=== PATIENT | female | born 1975 | race Caucasian/White ===

== ENCOUNTER 2016-08-15 17:49 | Emergency (ER) | payer BC ==
[2016-08-15] MEDS ORDERED: ONDANSETRON 4 MG/2 ML VIAL IVP STA (18:07)
[2016-08-15] MEDS ORDERED: DICYCLOMINE 10 MG/ML 2 ML AMP IM STA (18:07)
[2016-08-15] MEDS ORDERED: RX INFO: IV CONTRAST WAS GIVEN 1 EACH MISC MISCELLANE PRN (18:07)
[2016-08-15] MEDS ORDERED: SODIUM CHLORIDE 0.9% 1,000 ML IV STA (18:07)
[2016-08-15] MEDS ORDERED: FAMOTIDINE 20 MG/2 ML VIAL IV STA (18:08)
--- NOTE | 2016-08-15 18:10 | ED ---
General Adult HPI - General Chief complaint: Abdominal Pain Stated complaint: abdominal pain Time Seen by Provider: 08/15/16 18:02 Source: patient, RN notes reviewed Mode of arrival: wheelchair Limitations: no limitations - History of Present Illness Initial comments: Patient is a pleasant 41-year-old female presenting to the emergency department complaining of abdominal discomfort. Onset was around 11. Symptoms worsened around 4:00. Symptoms are somewhat steady at this point. Patient has discomfort more in her lower than upper abdomen. Discomfort is also in the back. Patient questions if she had a fever earlier. Patient has nausea without vomiting. No constipation or diarrhea. No dysuria or hematuria. No history of similar symptoms previously. Patient states she did have paresthesias of her arms and legs earlier. - Related Data Home Medications Medication Instructions Recorded Confirmed LORazepam [Lorazepam] 0.5 mg PO HS PRN 11/03/14 08/15/16 Calcium Lactate 84 mg PO 08/15/16 08/15/16 Cider Vinegar [Apple Cider Vinegar] 300 mg PO 08/15/16 08/15/16 Desmopressin Intranasal [Ddavp 1 spray NASAL 08/15/16 08/15/16 Nasal [place]] Desmopressin Intranasal [Ddavp 2 spray NASAL [facility] 08/15/16 08/15/16 Nasal [place]] Hydrocortisone [Cortef] 5 mg PO DAILY@1500 08/15/16 08/15/16 Hydrocortisone [Cortef] 10 mg PO [facility] 08/15/16 08/15/16 Levothyroxine Sodium [Tirosint] 25 mcg PO DAILY 08/15/16 08/15/16 Milk Of Magnesia Tab 1.5 tab PO 08/15/16 08/15/16 Montelukast [Singulair] 10 mg PO 08/15/16 08/15/16 Ranitidine HCl 300 mg PO 08/15/16 08/15/16 Venlafaxine HCl ER [Effexor Xr] 225 mg PO DAILY 08/15/16 08/15/16 Previous Rx's Medication Instructions Recorded Dicyclomine HCl [Bentyl] 20 mg PO QID PRN #15 tab 08/15/16 Ondansetron Odt [Zofran Odt] 4 mg PO Q8HR PRN #10 tab 08/15/16 Allergies Allergy/AdvReac Type Severity Reaction Status Date / Time adhesive AdvReac TEARS AND Verified 08/15/16 18:19 IRRITATES SKIN gluten AdvReac JOINT PAIN Verified 08/15/16 18:19 AND SEVERE CONSTIPATION lactose AdvReac Nausea & Verified 08/15/16 18:19 Vomiting codeine AdvReac Nausea & Uncoded 12/22/15 08:54 Vomiting Review of Systems ROS Statement: Those systems with pertinent positive or pertinent negative responses have been documented in the HPI. ROS Other: All systems not noted in ROS Statement are negative. Constitutional: Reports: chills Eyes: Denies: eye pain ENT: Denies: ear pain Respiratory: Denies: cough Cardiovascular: Denies: chest pain Endocrine: Denies: fatigue Gastrointestinal: Reports: abdominal pain, nausea. Denies: vomiting, diarrhea, constipation Genitourinary: Denies: urgency, dysuria Musculoskeletal: Denies: back pain Skin: Denies: rash Neurological: Denies: weakness Past Medical History Past Medical History: Thyroid Disorder Additional Past Medical History / Comment(s): hx pituitary tumor,anemia, hypoglycemia, steroid dependant diabetes insipidous History of Any Multi-Drug Resistant Organisms: None Reported Past Surgical History: Breast Surgery, Hysterectomy Additional Past Surgical History / Comment(s): exploratory laparoscopy, pituitary removed 01-21-12-transphenoid approach, bryan breast bx ;colonoscopy Past Anesthesia/Blood Transfusion Reactions: Motion Sickness, Postoperative Nausea & Vomiting (PONV) Past Psychological History: Anxiety, Depression Smoking Status: Never smoker Past Alcohol Use History: None Reported Additional Past Alcohol Use History / Comment(s): smoked briefly in college Past Drug Use History: None Reported - Past Family History Mother Family Medical History: Hyperlipidemia, Hypertension Father Family Medical History: Cancer, Hyperlipidemia, Hypertension Additional Family Medical History / Comment(s): arthritis General Exam Limitations: no limitations General appearance: alert, in no apparent distress Head exam: Present: atraumatic Eye exam: Present: normal appearance, PERRL ENT exam: Present: normal oropharynx Neck exam: Present: normal inspection Respiratory exam: Present: normal lung sounds bilaterally Cardiovascular Exam: Present: regular rate, normal rhythm GI/Abdominal exam: Present: soft, tenderness (Moderate tenderness lower abdomen , mild tenderness of her abdomen), normal bowel sounds. Absent: distended, guarding, rebound, rigid, pulsatile mass Extremities exam: Present: normal inspection Back exam: Present: normal inspection. Absent: tenderness Neurological exam: Present: alert Expanded Sensory exam: Upper Extremity Light Touch: Normal, Lower Extremity Light Touch: Normal Psychiatric exam: Present: normal affect, normal mood Skin exam: Absent: rash Course Vital Signs 08/15/16 17:52 Temperature 97.8 F Pulse Rate 99 Respiratory 16 Rate Blood Pressure 122/69 O2 Sat by Pulse 100 Oximetry Medical Decision Making - Medical Decision Making Patient reexamined and improved. Patient still has some discomfort of her lower back and is receptive to further pain medication. Patient updated on results and need for follow-up. Patient advised to return if symptoms worsen. - Lab Data Result diagrams: 08/15/16 18:30 08/15/16 18:30 Lab Results 08/15/16 08/15/16 08/15/16 Range/Units 18:30 18:30 18:30 WBC 9.4 (3.8-10.6) k/uL RBC 4.49 (3.80-5.40) m/uL Hgb 13.4 (11.4-16.0) gm/dL Hct 40.4 (34.0-46.0) % MCV 90.1 (80.0-100.0) fL MCH 29.7 (25.0-35.0) pg MCHC 33.0 (31.0-37.0) g/dL RDW 11.9 (11.5-15.5) % Plt Count 312 (150-450) k/uL Neutrophils % 85 % Lymphocytes % 9 % Monocytes % 4 % Eosinophils % 0 % Basophils % 0 % Neutrophils # 8.0 H (1.3-7.7) k/uL Lymphocytes # 0.9 L (1.0-4.8) k/uL Monocytes # 0.4 (0-1.0) k/uL Eosinophils # 0.0 (0-0.7) k/uL Basophils # 0.0 (0-0.2) k/uL PT 9.8 (9.0-12.0) sec INR 1.0 (<1.1) APTT 23.2 (22.0-30.0) sec Sodium 138 (137-145) mmol/L Potassium 4.2 (3.5-5.1) mmol/L Chloride 101 (98-107) mmol/L Carbon Dioxide 24 (22-30) mmol/L Anion Gap 13 mmol/L BUN 13 (7-17) mg/dL Creatinine 0.60 (0.52-1.04) mg/dL Est GFR (MDRD) Af Amer >60 (>60 ml/min/1.73 sqM) Est GFR (MDRD) Non-Af >60 (>60 ml/min/1.73 sqM) Glucose 87 (74-99) mg/dL Calcium 9.5 (8.4-10.2) mg/dL Total Bilirubin 0.8 (0.2-1.3) mg/dL AST 16 (14-36) U/L ALT 26 (9-52) U/L Alkaline Phosphatase 100 (38-126) U/L Total Protein 7.3 (6.3-8.2) g/dL Albumin 4.1 (3.5-5.0) g/dL Amylase <30 L (30-110) U/L Lipase 71 (23-300) U/L Urine Color Urine Appearance (Clear) Urine pH (5.0-8.0) Ur Specific [place] (1.001-1.035) Urine Protein (Negative) Urine Glucose (UA) (Negative) Urine Ketones (Negative) Urine Blood (Negative) Urine Nitrate (Negative) Urine Bilirubin (Negative) Urine Urobilinogen (<2.0) mg/dL Ur Leukocyte Esterase (Negative) Urine RBC (0-5) /hpf Urine WBC (0-5) /hpf Ur Squamous Epith Cells (0-4) /hpf Amorphous Sediment (None) /hpf Urine Mucus (None) /hpf 08/15/16 Range/Units 18:30 WBC (3.8-10.6) k/uL RBC (3.80-5.40) m/uL Hgb (11.4-16.0) gm/dL Hct (34.0-46.0) % MCV (80.0-100.0) fL MCH (25.0-35.0) pg MCHC (31.0-37.0) g/dL RDW (11.5-15.5) % Plt Count (150-450) k/uL Neutrophils % % Lymphocytes % % Monocytes % % Eosinophils % % Basophils % % Neutrophils # (1.3-7.7) k/uL Lymphocytes # (1.0-4.8) k/uL Monocytes # (0-1.0) k/uL Eosinophils # (0-0.7) k/uL Basophils # (0-0.2) k/uL PT (9.0-12.0) sec INR (<1.1) APTT (22.0-30.0) sec Sodium (137-145) mmol/L Potassium (3.5-5.1) mmol/L Chloride (98-107) mmol/L Carbon Dioxide (22-30) mmol/L Anion Gap mmol/L BUN (7-17) mg/dL Creatinine (0.52-1.04) mg/dL Est GFR (MDRD) Af Amer (>60 ml/min/1.73 sqM) Est GFR (MDRD) Non-Af (>60 ml/min/1.73 sqM) Glucose (74-99) mg/dL Calcium (8.4-10.2) mg/dL Total Bilirubin (0.2-1.3) mg/dL AST (14-36) U/L ALT (9-52) U/L Alkaline Phosphatase (38-126) U/L Total Protein (6.3-8.2) g/dL Albumin (3.5-5.0) g/dL Amylase (30-110) U/L Lipase (23-300) U/L Urine Color Yellow Urine Appearance Cloudy H (Clear) Urine pH 8.5 H (5.0-8.0) Ur Specific [place] 1.017 (1.001-1.035) Urine Protein 1+ H (Negative) Urine Glucose (UA) Negative (Negative) Urine Ketones Negative (Negative) Urine Blood Negative (Negative) Urine Nitrate Negative (Negative) Urine Bilirubin Negative (Negative) Urine Urobilinogen <2.0 (<2.0) mg/dL Ur Leukocyte Esterase Negative (Negative) Urine RBC 2 (0-5) /hpf Urine WBC 1 (0-5) /hpf Ur Squamous Epith Cells 5 H (0-4) /hpf Amorphous Sediment Occasional H (None) /hpf Urine Mucus Rare H (None) /hpf - Radiology Data Radiology results: report reviewed (Computed tomography scan of the abdomen and pelvis shows no acute process.) Disposition Clinical Impression: Abdominal pain Disposition: HOME SELF-CARE Condition: Stable Instructions: Abdominal Pain (ED) Additional Instructions: Please follow-up with your doctor in the next day or 2 for recheck. Return for fevers, increased pain, worsening symptoms or any other concerns. Prescriptions: Dicyclomine HCl [Bentyl] 20 mg PO QID PRN #15 tab PRN Reason: Pain Ondansetron Odt [Zofran Odt] 4 mg PO Q8HR PRN #10 tab PRN Reason: Nausea Referrals: Bk Cornell MD [Primary Care Provider] - 1-2 days
[2016-08-15 18:45] LABS: Basophils % (A) 0 %; CH 30.2; CHCM 33.7; Eosinophils % (A) 0 %; HCT 40.4 % (34.0-46.0); HGB 13.4 gm/dL (11.4-16.0); Luc # (Auto) 0.07; Luc % (Auto) 1; Lymphocytes # (A) 0.9 k/uL (1.0-4.8); Lymphocytes % (A) 9 %; MCH 29.7 pg (25.0-35.0); MCV 90.1 fL (80.0-100.0); Mean Platelet Volume 8.5; Monocytes # (A) 0.4 k/uL (0-1.0); Monocytes % (A) 4 %; Neutrophils % (A) 85 %; RBC 4.49 m/uL (3.80-5.40); RDW 11.9 % (11.5-15.5); WBC 9.4 k/uL (3.8-10.6); WBC (Perox) 9.94
[2016-08-15 18:48] LABS: Amorphous Sediment,Urine Occasional /hpf; Appearance,Urine Cloudy (Clear); Bilirubin,Urine Negative (Negative); Glucose,Urine (UA) Negative (Negative); Ketones,Urine Negative (Negative); Leukocyte Esterase,Urine Negative (Negative); Mucus,Urine Rare /hpf; Nitrite,Urine Negative (Negative); PH, Urine 8.5 (5.0-8.0); Particle Count 5907; Protein,Urine 1+ (Negative); RBC,Urine 2 /hpf (0-5); Specific Gravity,Urine 1.017 (1.001-1.035); Squamous Epithelial Cell,Urine 5 /hpf (0-4); UA Billing (MACRO vs. MICRO) MICRO; Urobilinogen,Urine <2.0 mg/dL (<2.0); WBC,Urine 1 /hpf (0-5)
[2016-08-15 18:53] LABS: Partial Thromboplastin Time 23.2 sec (22.0-30.0); Prothrombin Time 9.8 sec (9.0-12.0)
[2016-08-15 18:56] LABS: ALT 26 U/L (9-52); AST 16 U/L (14-36); Alkaline Phosphatase 100 U/L (38-126); Amylase <30 U/L (30-110); Anion Gap 13 mmol/L; Blood Urea Nitrogen 13 mg/dL (7-17); Calcium 9.5 mg/dL (8.4-10.2); Carbon Dioxide 24 mmol/L (22-30); Chloride 101 mmol/L (98-107); Glucose 87 mg/dL (74-99); Non-African American GFR(MDRD) >60 (>60 ml/min/1.73 sqM); Potassium 4.2 mmol/L (3.5-5.1); Sodium 138 mmol/L (137-145); Total Bilirubin 0.8 mg/dL (0.2-1.3); Total Protein 7.3 g/dL (6.3-8.2)
--- NOTE | 2016-08-15 19:26 | CT ---
EXAMINATION TYPE: CT abdomen pelvis w con DATE OF EXAM: 08/15/2016 6:58 PM COMPARISON: NONE HISTORY: Patient complains of bilateral pelvic pain. CT DLP: 417.8 mGycm Automated exposure control for dose reduction was used. TECHNIQUE: Helical acquisition of images was performed from the lung bases through the pelvis. CONTRAST: Performed without Oral Contrast and with IV Contrast, patient injected with 100 mL of Omnipaque 300. FINDINGS: LUNG BASES: No significant abnormality is appreciated. LIVER/GB: No significant abnormality is appreciated. PANCREAS: No significant abnormality is seen. SPLEEN: No significant abnormality is seen. ADRENALS: No significant abnormality is seen. KIDNEYS: No significant abnormality is seen. REPRODUCTIVE ORGANS: No significant abnormality is seen URINARY BLADDER: No significant abnormality is seen. PELVIC ADENOPATHY: None visualized. OSSEOUS STRUCTURES: No significant abnormality is seen. BOWEL: No significant abnormality is seen. IMPRESSION: NO ACUTE PROCESS, CT ABDOMEN AND PELVIS WITH CONTRAST.
[2016-08-15] MEDS ORDERED: MORPHINE SULFATE 4 MG/ML SYRINGE IV STA (19:43)
[2016-08-15 19:59] VITALS: BP 104/65; PULSE 84; RESP 18; TEMP 98.7
== END 2016-08-15 20:12 | disposition home or self-care (01) ==
LOC: EC 17:49
DX: R10.9 Unspecified abdominal pain (principal); E23.2 Diabetes insipidus; R11.0 Nausea; E07.9 Disorder of thyroid, unspecified; Z79.52 Long term (current) use of systemic steroids; Z88.5 Allergy status to narcotic agent; F41.9 Anxiety disorder, unspecified; F32.9 Major depressive disorder, single episode, unspecified; Z79.899 Other long term (current) drug therapy
CPT/HCPCS: 96372; 96374; 96375; 96361; 99284; 36415; 80053; 82150; 83690; 85025; 85610; 85730; 81001; 74177; J2270; J0500; J2405

== ENCOUNTER → 2016-08-22 | Outpatient (CLI) | payer BC ==
[2016-08-22 17:15] LABS: ALT 33 U/L (9-52); AST 15 U/L (14-36); Alkaline Phosphatase 104 U/L (38-126); Anion Gap 14 mmol/L; Blood Urea Nitrogen 8 mg/dL (7-17); Calcium 10.1 mg/dL (8.4-10.2); Carbon Dioxide 27 mmol/L (22-30); Chloride 106 mmol/L (98-107); Glucose 81 mg/dL (74-99); Non-African American GFR(MDRD) >60 (>60 ml/min/1.73 sqM); Potassium 4.1 mmol/L (3.5-5.1); Sodium 147 mmol/L (137-145); Total Bilirubin 0.3 mg/dL (0.2-1.3); Total Protein 7.8 g/dL (6.3-8.2)
[2016-08-22 17:33] LABS: Follicle Stimulating Hormone 3.9 mIU/mL
[2016-08-22 17:48] LABS: Estradiol 96 pg/mL
== END | disposition home or self-care (01) ==
LOC: LABWHC1 16:08
PROVIDERS: ATTEND Internal Medicine Endocrinology, Diabetes & Metabolism
DX: D44.3 Neoplasm of uncertain behavior of pituitary gland (principal)
CPT/HCPCS: 36415; 80053; 82670; 83001; 83002; 84403; 84439; 84443

== ENCOUNTER → 2016-08-24 | Outpatient (CLI) | payer BC ==
--- NOTE | 2016-08-24 09:03 | NM ---
Nuclear medicine hepatobiliary scan. HISTORY: Pain. The patient received 8 ounces of oral ensure plus and 5 mCi of Technetium 99m Choletec. There is normal hepatic extraction. The gallbladder is seen by 15 minutes. Ejection fraction is 78% . IMPRESSION: 1. No evidence of cholecystitis. 2. Ejection fraction 78%. Correlate clinically.
== END | disposition home or self-care (01) ==
LOC: RADNMMAIN 06:54
PROVIDERS: ATTEND Nurse Practitioner Family
DX: R10.84 Generalized abdominal pain (principal)
CPT/HCPCS: 78226; A9537

== ENCOUNTER → 2016-11-01 | Outpatient (CLI) | payer BC ==
[2016-11-01 16:48] LABS: ALT 26 U/L (9-52); AST 20 U/L (14-36); Alkaline Phosphatase 104 U/L (38-126); Anion Gap 13 mmol/L; Blood Urea Nitrogen 12 mg/dL (7-17); Carbon Dioxide 28 mmol/L (22-30); Chloride 100 mmol/L (98-107); Glucose 84 mg/dL (74-99); Non-African American GFR(MDRD) >60 (>60 ml/min/1.73 sqM); Potassium 4.5 mmol/L (3.5-5.1); Sodium 141 mmol/L (137-145); Total Bilirubin 0.5 mg/dL (0.2-1.3); Total Protein 7.9 g/dL (6.3-8.2)
== END ==
LOC: LABWHC1 16:07
PROVIDERS: ATTEND Internal Medicine Endocrinology, Diabetes & Metabolism
DX: D49.7 Neoplasm of unspecified behavior of endocrine glands and other parts of nervous system (principal)
CPT/HCPCS: 36415; 80053

== ENCOUNTER → 2016-11-16 | Outpatient (CLI) | payer BC ==
--- NOTE | 2016-11-17 11:36 | MM ---
Reason for exam: screening (asymptomatic). Last mammogram was performed 2 years and 1 month ago. History: Family history of breast cancer in maternal aunt at age 40 and breast cancer in paternal aunt at age 33. Benign US breast aspiration single RT of the right breast, October 31, 2014. Benign US biopsy breast VAD LT of the left breast, October 31, 2014. Physical Findings: A clinical breast exam by your physician is recommended on an annual basis and results should be correlated with mammographic findings. MG 3D Screening Mammo W/Cad Bilateral CC and MLO view(s) were taken. Prior study comparison: October 31, 2014, left breast MG diagnostic mammo LT wo CAD. October 30, 2014, bilateral MG work up mamm w CAD BILAT. The breast tissue is heterogeneously dense. This may lower the sensitivity of mammography. Previous ultrasound biopsy within the left breast. No significant changes when compared with prior studies. ASSESSMENT: Benign, BI-RAD 2 RECOMMENDATION: Routine screening mammogram of both breasts in 1 year.
== END | disposition home or self-care (01) ==
LOC: RADMAMWWP 10:33
PROVIDERS: ATTEND Pediatrics
DX: Z12.31 Encounter for screening mammogram for malignant neoplasm of breast (principal)
CPT/HCPCS: 77063; G0202

== ENCOUNTER → 2017-01-11 | Outpatient (CLI) | payer BC ==
[2017-01-11 16:09] LABS: ALT 23 U/L (9-52); AST 14 U/L (14-36); Alkaline Phosphatase 95 U/L (38-126); Anion Gap 9 mmol/L; Blood Urea Nitrogen 8 mg/dL (7-17); Calcium 9.6 mg/dL (8.4-10.2); Carbon Dioxide 27 mmol/L (22-30); Chloride 105 mmol/L (98-107); Glucose 85 mg/dL (74-99); Non-African American GFR(MDRD) >60 (>60 ml/min/1.73 sqM); Potassium 3.9 mmol/L (3.5-5.1); Sodium 141 mmol/L (137-145); Total Bilirubin 0.2 mg/dL (0.2-1.3); Total Protein 7.4 g/dL (6.3-8.2)
== END ==
LOC: LABWHC1 15:27
PROVIDERS: ATTEND Internal Medicine Endocrinology, Diabetes & Metabolism
DX: E27.40 Unspecified adrenocortical insufficiency (principal); E03.8 Other specified hypothyroidism
CPT/HCPCS: 36415; 80053; 82024; 84439; 84443

== ENCOUNTER → 2017-05-04 | Outpatient (CLI) | payer BC | END | disposition home or self-care (01) | LOC: LABWHC1 14:10 | PROVIDERS: ATTEND Internal Medicine Endocrinology, Diabetes & Metabolism | DX: E27.40 Unspecified adrenocortical insufficiency (principal); E23.2 Diabetes insipidus | CPT/HCPCS: 36415; 84146; 84439; 84443 ==

== ENCOUNTER → 2017-05-29 | Outpatient (CLI) | payer BC ==
--- NOTE | 2017-05-29 09:54 | FL ---
EXAMINATION TYPE: FL small bowel follow through DATE OF EXAM: 05/29/2017 CLINICAL HISTORY: Inconsistent bowel habits. TECHNIQUE: A single contrast small bowel follow through is performed utilizing 16 ounces of thin bar ium. 16 seconds of fluoroscopy time was utilized with 8 images saved. COMPARISON: None FINDINGS: Stained Glass Painter image of the abdomen shows no dilated bowel. Incidental note of a 2 mm right lower p ole renal calculus is seen. The small bowel study shows normal transit to the colon in less than 40 minutes. There is a normal m ucosal fold pattern throughout the small bowel. There is no evidence of any stricture or filling def ect noted. The terminal ileum is spotted and appears unremarkable. IMPRESSION: 1. Unremarkable small bowel follow through with a normal small bowel mucosal fold pattern and no evid ence of stricture. 2. Incidentally noted 2 mm right renal calculus.
== END ==
LOC: RADFLMAIN 07:37
PROVIDERS: ATTEND Physician Assistant
DX: R19.4 Change in bowel habit (principal)
CPT/HCPCS: 74250

== ENCOUNTER → 2017-10-28 | Outpatient (CLI) | payer BC ==
[2017-10-28 10:15] LABS: HCT 42.1 % (34.0-46.0); MCH 30.4 pg (25.0-35.0); MCHC 33.3 g/dL (31.0-37.0); Platelet Count 363 k/uL (150-450); RBC 4.63 m/uL (3.80-5.40); RDW 12.4 % (11.5-15.5); WBC 10.2 k/uL (3.8-10.6)
[2017-10-28 10:31] LABS: ALT 21 U/L (9-52); AST 12 U/L (14-36); Albumin 4.1 g/dL (3.5-5.0); Alkaline Phosphatase 119 U/L (38-126); Anion Gap 10 mmol/L; Blood Urea Nitrogen 12 mg/dL (7-17); Calcium 10.1 mg/dL (8.4-10.2); Carbon Dioxide 27 mmol/L (22-30); Chloride 107 mmol/L (98-107); Cholesterol 210 mg/dL (<200); Glucose 97 mg/dL (74-99); HDL Cholesterol 49 mg/dL (40-60); LDL Cholesterol,Calculated 125 mg/dL (0-99); Potassium 4.6 mmol/L (3.5-5.1); Sodium 144 mmol/L (137-145); Total Bilirubin 0.8 mg/dL (0.2-1.3); Total Protein 7.6 g/dL (6.3-8.2); Triglycerides 181 mg/dL (<150)
== END | disposition home or self-care (01) ==
LOC: LABWHC1 09:36
PROVIDERS: ATTEND Pediatrics
DX: Z00.00 Encounter for general adult medical examination without abnormal findings (principal); E27.1 Primary adrenocortical insufficiency; E55.9 Vitamin D deficiency, unspecified
CPT/HCPCS: 36415; 80053; 80061; 82306; 85027

== ENCOUNTER → 2018-01-25 | Outpatient (CLI) | payer BC ==
[2018-01-25 11:17] LABS: ALT 32 U/L (9-52); AST 18 U/L (14-36); Albumin 4.1 g/dL (3.5-5.0); Alkaline Phosphatase 100 U/L (38-126); Anion Gap 12 mmol/L; Blood Urea Nitrogen 13 mg/dL (7-17); Calcium 9.4 mg/dL (8.4-10.2); Carbon Dioxide 22 mmol/L (22-30); Chloride 107 mmol/L (98-107); Glucose 94 mg/dL (74-99); Potassium 4.5 mmol/L (3.5-5.1); Sodium 141 mmol/L (137-145); Total Bilirubin 0.7 mg/dL (0.2-1.3)
[2018-01-25 17:21] LABS: Vitamin D 25 Hydroxy 45.8 ng/mL (30.0-100.0)
[2018-01-25 18:54] LABS: ACTH <5.00 pg/mL (0.00-45.99)
== END | disposition home or self-care (01) ==
LOC: LABWHC1 10:34
PROVIDERS: ATTEND Internal Medicine Endocrinology, Diabetes & Metabolism
DX: E27.40 Unspecified adrenocortical insufficiency (principal); E23.2 Diabetes insipidus; E03.8 Other specified hypothyroidism; D35.2 Benign neoplasm of pituitary gland
CPT/HCPCS: 36415; 80053; 82024; 82306; 84146; 84439; 84443

== ENCOUNTER → 2018-09-26 | Outpatient (CLI) | payer BC ==
[2018-09-26 15:58] LABS: Albumin 4.3 g/dL (3.80-4.90); Albumin/Globulin Ratio 1.65 (1.60-3.17); Anion Gap 9.1 mmol/L (4.00-12.00); Calcium 9.3 mg/dL (8.7-10.3); Carbon Dioxide 22.9 mmol/L (21.6-31.8); Globulin 2.6 g/dL (1.6-3.3); Potassium 4.3 mmol/L (3.5-5.5); Total Bilirubin 0.6 mg/dL (0.3-1.2); Total Protein 6.9 g/dL (6.2-8.2)
[2018-09-26 16:05] LABS: T4, Free (Free Thyroxine) 1.3 ng/dL (0.80-1.80)
[2018-09-26 18:10] LABS: ACTH <5.00 pg/mL (0.00-45.99)
== END ==
LOC: LABWHC1 09:42
PROVIDERS: ATTEND Internal Medicine Endocrinology, Diabetes & Metabolism
DX: D35.2 Benign neoplasm of pituitary gland (principal)
CPT/HCPCS: 36415; 80053; 82024; 82533; 83001; 84146; 84439; 84443

== ENCOUNTER → 2018-10-24 | Outpatient (CLI) | payer BC ==
[2018-10-24 17:05] LABS: Albumin 4.4 g/dL (3.80-4.90); Albumin/Globulin Ratio 1.63 (1.60-3.17); Calcium 10.1 mg/dL (8.7-10.3); Globulin 2.7 g/dL (1.6-3.3); Potassium 4.4 mmol/L (3.5-5.5); Total Bilirubin 0.8 mg/dL (0.3-1.2); Total Protein 7.1 g/dL (6.2-8.2)
[2018-10-24 17:13] LABS: T4, Free (Free Thyroxine) 1.3 ng/dL (0.80-1.80)
== END | disposition home or self-care (01) ==
LOC: LABWHC1 10:39
PROVIDERS: ATTEND Internal Medicine Endocrinology, Diabetes & Metabolism
DX: D35.2 Benign neoplasm of pituitary gland (principal)
CPT/HCPCS: 36415; 80053; 83001; 84439; 84443

== ENCOUNTER → 2018-11-26 | Outpatient (CLI) | payer BC ==
[2018-11-26 18:32] LABS: T4, Free (Free Thyroxine) 1.2 ng/dL (0.80-1.80)
== END | disposition home or self-care (01) ==
LOC: LABWHC1 11:24
PROVIDERS: ATTEND Internal Medicine Endocrinology, Diabetes & Metabolism
DX: D35.2 Benign neoplasm of pituitary gland (principal); E03.8 Other specified hypothyroidism; E27.40 Unspecified adrenocortical insufficiency; E23.2 Diabetes insipidus
CPT/HCPCS: 36415; 82533; 84439; 84443; 84481

== ENCOUNTER → 2019-02-25 | Outpatient (CLI) | payer BC ==
[2019-02-25 18:22] LABS: African American GFR (CKD) 91.4 (60.0-200.0); Albumin 4.3 g/dL (3.80-4.90); Albumin/Globulin Ratio 1.79 (1.60-3.17); Anion Gap 7.5 mmol/L (4.00-12.00); BUN/Creat Ratio 16.67 Ratio (12.00-20.00); Calcium 9.8 mg/dL (8.7-10.3); Carbon Dioxide 24.5 mmol/L (21.6-31.8); Globulin 2.4 g/dL (1.6-3.3); Potassium 4.6 mmol/L (3.5-5.5); Total Bilirubin 0.8 mg/dL (0.2-1.2); Total Protein 6.7 g/dL (6.2-8.2)
[2019-02-25 18:31] LABS: T4, Free (Free Thyroxine) 1.2 ng/dL (0.80-1.80)
== END | disposition home or self-care (01) ==
LOC: LABWHC1 13:06
PROVIDERS: ATTEND Internal Medicine Endocrinology, Diabetes & Metabolism
DX: D35.2 Benign neoplasm of pituitary gland (principal)
CPT/HCPCS: 36415; 80053; 83001; 84439; 84443

== ENCOUNTER → 2019-08-15 | Outpatient (CLI) | payer BC ==
[2019-08-15 23:31] LABS: Prolactin 6.1 ng/mL (2.8-29.2); T4, Free (Free Thyroxine) 1.2 ng/dL (0.80-1.80)
[2019-08-16 02:25] LABS: ACTH <5.00 pg/mL (0.00-45.99)
== END | disposition home or self-care (01) ==
LOC: LABWHC1 16:02
PROVIDERS: ATTEND Internal Medicine Endocrinology, Diabetes & Metabolism
DX: E27.40 Unspecified adrenocortical insufficiency (principal); E23.2 Diabetes insipidus; D35.2 Benign neoplasm of pituitary gland; D03.8 Melanoma in situ of other sites
CPT/HCPCS: 36415; 82024; 82533; 84146; 84439; 84443; 84480

== ENCOUNTER → 2019-10-17 | Outpatient (CLI) | payer BC ==
[2019-10-18 00:36] LABS: African American GFR (CKD) 91.4 (60.0-200.0); Albumin 4.4 g/dL (3.80-4.90); Albumin/Globulin Ratio 1.83 (1.60-3.17); Anion Gap 10.5 mmol/L (4.00-12.00); BUN/Creat Ratio 13.33 Ratio (12.00-20.00); Calcium 9.1 mg/dL (8.7-10.3); Carbon Dioxide 25.5 mmol/L (21.6-31.8); Globulin 2.4 g/dL (1.6-3.3); Non-African American GFR(CKD) 78.9 (60.0-200.0); Potassium 4.1 mmol/L (3.5-5.5); Total Bilirubin 0.4 mg/dL (0.3-1.2); Total Protein 6.8 g/dL (6.2-8.2)
== END | disposition home or self-care (01) ==
LOC: LABWHC1 17:29
PROVIDERS: ATTEND Internal Medicine Endocrinology, Diabetes & Metabolism
DX: E27.40 Unspecified adrenocortical insufficiency (principal); E03.8 Other specified hypothyroidism; E23.2 Diabetes insipidus; D35.2 Benign neoplasm of pituitary gland
CPT/HCPCS: 36415; 80053

== ENCOUNTER → 2020-03-07 | Outpatient (CLI) | payer BC ==
--- NOTE | 2020-03-07 13:03 | MR ---
EXAMINATION TYPE: MR pituitary wo/w con DATE OF EXAM: 03/07/2020 COMPARISON: Previous study dated 10/26/2015 HISTORY: Benign neoplasm of pituitary gland, pituitary macroadenoma TECHNIQUE: Multiplanar, multisequence images of the brain and brainstem is performed without and with IV contras t, utilizing 7 mL intravenous Gadavist . 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 This is unchanged from previous. The pituitary stalk is midline. There continues to be abnormal enhancement along the right lateral as pect of the sella turcica. This is unchanged from previous. There is a central nidus of less enhancin g tissue measuring 6.5 x 5 mm. This is unchanged from previous. IMPRESSION: Stable findings in the right lateral aspect of the sella turcica. This may represent postsurgical gustavo nge or residual neoplasm.
== END | disposition home or self-care (01) ==
LOC: RADMRIMAIN 08:43
PROVIDERS: ATTEND Internal Medicine Endocrinology, Diabetes & Metabolism
DX: D35.2 Benign neoplasm of pituitary gland (principal)
CPT/HCPCS: 70553; A9585

== ENCOUNTER → 2020-03-27 | Outpatient (CLI) | payer BC | END | disposition home or self-care (01) | LOC: LABWHC1 12:30 | PROVIDERS: ATTEND Internal Medicine Endocrinology, Diabetes & Metabolism | DX: D35.2 Benign neoplasm of pituitary gland (principal) | CPT/HCPCS: 36415; 82024; 82533; 84443 ==

== ENCOUNTER → 2020-05-04 | Outpatient (CLI) | payer BC ==
[2020-05-05 02:15] LABS: T4, Free (Free Thyroxine) 1.4 ng/dL (0.80-1.80)
[2020-05-05 04:50] LABS: ACTH 5.26 pg/mL (0.00-45.99)
== END | disposition home or self-care (01) ==
LOC: LABWHC1 16:02
PROVIDERS: ATTEND Internal Medicine Endocrinology, Diabetes & Metabolism
DX: D35.2 Benign neoplasm of pituitary gland (principal); E03.8 Other specified hypothyroidism
CPT/HCPCS: 36415; 82024; 82533; 84439; 84443; 84480

== ENCOUNTER → 2020-06-23 | Outpatient (CLI) | payer BC ==
[2020-06-24 03:00] LABS: African American GFR (CKD) 104.7 (60.0-200.0); Albumin 3.9 g/dL (3.80-4.90); Albumin/Globulin Ratio 1.44 (1.60-3.17); Anion Gap 8.9 mmol/L (4.00-12.00); BUN/Creat Ratio 12.5 Ratio (12.00-20.00); Carbon Dioxide 26.1 mmol/L (21.6-31.8); Globulin 2.7 g/dL (1.6-3.3); Non-African American GFR(CKD) 90.3 (60.0-200.0); Potassium 3.8 mmol/L (3.5-5.5); Total Bilirubin 0.3 mg/dL (0.2-1.2); Total Protein 6.6 g/dL (6.2-8.2)
== END | disposition home or self-care (01) ==
LOC: LABWHC1 16:27
PROVIDERS: ATTEND Internal Medicine Endocrinology, Diabetes & Metabolism
DX: E23.2 Diabetes insipidus (principal)
CPT/HCPCS: 36415; 80053; 83935

== ENCOUNTER → 2020-08-04 | Outpatient (CLI) | payer BC ==
[2020-08-04 22:32] LABS: ALT 16 U/L (8-44); AST 15 U/L (13-35); African American GFR (CKD) 104.7 (60.0-200.0); Albumin/Globulin Ratio 1.83 (1.60-3.17); Alkaline Phosphatase 105 U/L (41-126); Calcium 9.8 mg/dL (8.7-10.3); Carbon Dioxide 22.7 mmol/L (21.6-31.8); Chloride 107 mmol/L (96-109); Globulin 2.3 g/dL (1.6-3.3); Glucose 87 mg/dL (70-110); Non-African American GFR(CKD) 90.3 (60.0-200.0); Potassium 4.4 mmol/L (3.5-5.5); Sodium 140 mmol/L (135-145); Total Bilirubin 0.5 mg/dL (0.3-1.2); Total Protein 6.5 g/dL (6.2-8.2)
[2020-08-04 22:39] LABS: Prolactin 6.3 ng/mL (2.8-29.2)
[2020-08-05 16:01] LABS: ACTH <5.00 pg/mL (0.00-45.99)
== END | disposition home or self-care (01) ==
LOC: LABWHC1 11:08
PROVIDERS: ATTEND Internal Medicine Endocrinology, Diabetes & Metabolism
DX: E55.9 Vitamin D deficiency, unspecified (principal); E03.8 Other specified hypothyroidism; D35.2 Benign neoplasm of pituitary gland; E23.2 Diabetes insipidus; E27.49 Other adrenocortical insufficiency
CPT/HCPCS: 36415; 80053; 82024; 82306; 82533; 84146; 84439; 84443; 84480

== ENCOUNTER → 2021-04-30 | Outpatient (CLI) | payer BC ==
[2021-05-01 14:35] LABS: ALT 16 U/L (8-44); AST 15 U/L (13-35); African American GFR (CKD) 90.1 (60.0-200.0); Albumin/Globulin Ratio 1.41 (1.60-3.17); Alkaline Phosphatase 123 U/L (41-126); BUN/Creat Ratio 13.33 Ratio (12.00-20.00); Calcium 10.2 mg/dL (8.7-10.3); Carbon Dioxide 22.7 mmol/L (21.6-31.8); Chloride 108 mmol/L (96-109); Globulin 3.2 g/dL (1.6-3.3); Glucose 88 mg/dL (70-110); Non-African American GFR(CKD) 77.8 (60.0-200.0); Potassium 4.5 mmol/L (3.5-5.5); Sodium 142 mmol/L (135-145); Total Bilirubin 0.3 mg/dL (0.2-1.2); Total Protein 7.7 g/dL (6.2-8.2)
== END | disposition home or self-care (01) ==
LOC: LABWHC1 15:58
PROVIDERS: ATTEND Internal Medicine Endocrinology, Diabetes & Metabolism
DX: E03.8 Other specified hypothyroidism (principal); D35.2 Benign neoplasm of pituitary gland; E55.9 Vitamin D deficiency, unspecified
CPT/HCPCS: 36415; 80053; 82306; 82533; 84439; 84443; 84480

== ENCOUNTER → 2021-07-13 | Outpatient (CLI) | payer BC ==
[2021-07-13 21:08] LABS: African American GFR (CKD) 100.9 (60.0-200.0); Albumin 4.1 g/dL (3.8-4.9); Albumin/Globulin Ratio 1.51 (1.60-3.17); Anion Gap 13.7 mmol/L (10.00-18.00); BUN/Creat Ratio 18.78 Ratio (12.00-20.00); Blood Urea Nitrogen 15.4 mg/dL (9.0-27.0); Calcium 9.2 mg/dL (8.7-10.3); Carbon Dioxide 20.8 mmol/L (20.0-27.5); Globulin 2.7 g/dL (1.6-3.3); Potassium 4.6 mmol/L (3.5-5.5); Total Bilirubin 0.4 mg/dL (0.30-1.20); Total Protein 6.8 g/dL (6.2-8.2)
== END | disposition home or self-care (01) ==
LOC: LABWHC1 13:51
PROVIDERS: ATTEND Internal Medicine Endocrinology, Diabetes & Metabolism
DX: E03.8 Other specified hypothyroidism (principal); E27.40 Unspecified adrenocortical insufficiency
CPT/HCPCS: 36415; 80053; 82024; 82533; 84443

== ENCOUNTER → 2021-10-13 | Outpatient (CLI) | payer BC ==
--- NOTE | 2021-10-14 02:20 | MR ---
EXAMINATION TYPE: MR pituitary wo/w con DATE OF EXAM: 10/13/2021 COMPARISON: 03/07/2020 HISTORY: Hx pituitary tumor, prior surgery, complaining of headaches, vision/hearing changes. CONTRAST: Standard multiplanar, multisequence MRI departmental protocol images were obtained without contrast a nd with 7 mL intravenous Gadavist gadolinium contrast. The pituitary stalk is in the midline. Optic chiasm appears normal. The pituitary gland is thin on th e left side and normal thickness on the right side. There is no evidence of a sellar mass. The visual ized brainstem is intact. Visualized ventricles appear normal. IMPRESSION: Postsurgical changes with small left-sided pituitary gland which is not changed in appearance compare d to previous exam. No evidence of recurrent tumor.
== END | disposition home or self-care (01) ==
LOC: RADMRIMAIN 19:22
PROVIDERS: ATTEND Internal Medicine Endocrinology, Diabetes & Metabolism
DX: D35.2 Benign neoplasm of pituitary gland (principal)
CPT/HCPCS: 70553; A9585

== ENCOUNTER → 2021-10-18 | Outpatient (CLI) | payer BC ==
[2021-10-18 14:42] LABS: HCT 40.2 % (37.2-46.3); HGB 12.7 g/dL (12.0-15.0); MCH 29.6 pg (27.0-32.0); MCHC 31.6 g/dL (32.0-37.0); MCV 93.7 fL (80.0-97.0); Mean Platelet Volume 11.4 fL (9.5-12.2); NRBC Per 100 WBC 0 /100 WBCS (0.0-0.0); Platelet Count 347 X 10*3/uL (140-440); RBC 4.29 X 10*6/uL (4.10-5.20); RDW 12.6 % (11.5-14.5); WBC 9.32 X 10*3/uL (4.50-10.00)
[2021-10-18 15:23] LABS: African American GFR (CKD) 109.2 (60.0-200.0); Albumin/Globulin Ratio 1.55 (1.60-3.17); Anion Gap 13.8 mmol/L (10.00-18.00); BUN/Creat Ratio 23.31 Ratio (12.00-20.00); Blood Urea Nitrogen 17.9 mg/dL (9.0-27.0); Calcium 9.6 mg/dL (8.7-10.3); Carbon Dioxide 19.5 mmol/L (20.0-27.5); Follicle Stimulating Hormone 7.5 mIU/mL; Globulin 2.6 g/dL (1.6-3.3); Luteinizing Hormone 4.9 mIU/mL; Non-African American GFR(CKD) 94.2 (60.0-200.0); Potassium 4.4 mmol/L (3.5-5.5); T4, Free (Free Thyroxine) 1.4 ng/dL (0.800-1.800); Total Bilirubin 0.3 mg/dL (0.30-1.20); Total Protein 6.7 g/dL (6.2-8.2)
[2021-10-18 15:33] LABS: Estradiol 12.5 pg/mL; Prolactin 5.3 ng/mL (2.800-29.200)
[2021-10-18 20:41] LABS: ACTH <1.50 pg/mL (0.00-45.99)
== END | disposition home or self-care (01) ==
LOC: LABWHC1 10:17
PROVIDERS: ATTEND Internal Medicine Endocrinology, Diabetes & Metabolism
DX: D35.2 Benign neoplasm of pituitary gland (principal)
CPT/HCPCS: 36415; 80053; 82024; 82306; 82533; 82670; 83001; 83002; 83036; 84146; 84305; 84439; 84443; 84480; 85027

== ENCOUNTER → 2022-02-23 | Outpatient (CLI) | payer BC ==
[2022-02-23 10:55] LABS: African American GFR (CKD) >90 (>60 ml/min/1.73 sqM); Anion Gap 7 mmol/L; Blood Urea Nitrogen 13 mg/dL (7-17); Calcium 9.5 mg/dL (8.4-10.2); Carbon Dioxide 26 mmol/L (22-30); Chloride 104 mmol/L (98-107); Glucose 90 mg/dL (74-99); Non-African American GFR(CKD) 79 (>60 ml/min/1.73 sqM); Sodium 137 mmol/L (137-145)
[2022-02-23 11:09] LABS: T4, Free (Free Thyroxine) 1.16 ng/dL (0.78-2.19)
[2022-02-23 17:14] LABS: Estradiol 35.5 pg/mL; Follicle Stimulating Hormone 6.2 mIU/mL; Luteinizing Hormone 6.1 mIU/mL
[2022-02-23 21:41] LABS: DHEA Sulfate 93.2 ug/dL (26.0-430.0)
[2022-02-24 08:07] LABS: ACTH 18.1 pg/mL (0.00-45.99)
== END | disposition home or self-care (01) ==
LOC: LABWHC1 08:28
PROVIDERS: ATTEND Internal Medicine Endocrinology, Diabetes & Metabolism
DX: E03.8 Other specified hypothyroidism (principal); E27.49 Other adrenocortical insufficiency; E23.2 Diabetes insipidus; D35.2 Benign neoplasm of pituitary gland; R53.83 Other fatigue
CPT/HCPCS: 36415; 80048; 82024; 82306; 82533; 82607; 82627; 82670; 83001; 83002; 83930; 83935; 84146; 84305; 84439; 84443

== ENCOUNTER 2022-04-25 15:24 | Emergency (ER) | payer BC ==
[2022-04-25 17:11] VITALS: RESP 18
[2022-04-25] MEDS ORDERED: IPRATROPIUM-ALBUTEROL 3 ML NEB INHALATION STA (17:25)
[2022-04-25] MEDS ORDERED: ALBUTEROL HFA INHALER INHALATION STA (17:34)
--- NOTE | 2022-04-25 17:40 | ED ---
URI HPI - General Chief Complaint: Upper Respiratory Infection Stated Complaint: COVID+,autoimmune disease Time Seen by Provider: 04/25/22 17:13 Source: patient Mode of arrival: ambulatory Limitations: no limitations - History of Present Illness Initial Comments: Patient is a 47-year-old female presenting after testing positive for Covid at home. Patient has had a cough with mild difficulty breathing the last 3 days. Cough is productive. Patient admits to sore throat. Patient has history of Farrukh's disease, her verifying specialist encouraged her to present to the ER for further evaluation. She denies any chest pain,, palpitations, weakness, nausea, vomiting, abdominal pain, headache, vision or hearing changes, neck pain or stiffness, dizziness, hematochezia, melena, dysuria, hematuria, flank pain. - Related Data Home Medications Medication Instructions Recorded Confirmed LORazepam [Lorazepam] 0.5 mg PO HS PRN 11/03/14 08/15/16 Calcium Lactate 84 mg PO 08/15/16 08/15/16 Cider Vinegar [Apple Cider Vinegar] 300 mg PO 08/15/16 08/15/16 Desmopressin Intranasal [Ddavp 1 spray NASAL 08/15/16 08/15/16 Nasal [place]] Desmopressin Intranasal [Ddavp 2 spray NASAL [facility] 08/15/16 08/15/16 Nasal [place]] Hydrocortisone [Cortef] 5 mg PO DAILY@1500 08/15/16 08/15/16 Hydrocortisone [Cortef] 10 mg PO [facility] 08/15/16 08/15/16 Levothyroxine Sodium [Tirosint] 25 mcg PO DAILY 08/15/16 08/15/16 Milk Of Magnesia Tab 1.5 tab PO HS 08/15/16 08/15/16 Montelukast [Singulair] 10 mg PO 08/15/16 08/15/16 Venlafaxine HCl ER [Effexor Xr] 225 mg PO DAILY 08/15/16 08/15/16 raNITIdine HCL [Ranitidine HCl] 300 mg PO HS 08/15/16 08/15/16 Previous Rx's Medication Instructions Recorded Dicyclomine HCl [Bentyl] 20 mg PO QID PRN #15 tab 08/15/16 Ondansetron Odt [Zofran Odt] 4 mg PO Q8HR PRN #10 tab 08/15/16 Nirmatrelvir/Ritonavir [Paxlovid 1 unit PO BID #1 pack 04/25/22 300-100 mg Pack (Eua)] Allergies Allergy/AdvReac Type Severity Reaction Status Date / Time adhesive AdvReac TEARS AND Verified 04/25/22 17:11 IRRITATES SKIN gluten AdvReac JOINT PAIN Verified 04/25/22 17:11 AND SEVERE CONSTIPATION lactose AdvReac Nausea & Verified 04/25/22 17:11 Vomiting codeine AdvReac Nausea & Uncoded 04/25/22 17:11 Vomiting Review of Systems ROS Statement: Those systems with pertinent positive or pertinent negative responses have been documented in the HPI. ROS Other: All systems not noted in ROS Statement are negative. Past Medical History Past Medical History: Thyroid Disorder Additional Past Medical History / Comment(s): hx pituitary tumor,anemia,hypoglycemia, steroid dependant diabetes insipidous , addisons disease History of Any Multi-Drug Resistant Organisms: None Reported Past Surgical History: Breast Surgery, Hysterectomy Additional Past Surgical History / Comment(s): exploratory laparoscopy,pituitary removed 01-21-12-transphenoid approach, bryan breast bx ;colonoscopy Past Anesthesia/Blood Transfusion Reactions: Motion Sickness, Postoperative Nausea & Vomiting (PONV) Past Psychological History: Anxiety, Depression Smoking Status: Never smoker Past Alcohol Use History: None Reported Past Drug Use History: None Reported - Past Family History Mother Family Medical History: Hyperlipidemia, Hypertension Father Family Medical History: Cancer, Hyperlipidemia, Hypertension Additional Family Medical History / Comment(s): arthritis General Exam Limitations: no limitations General appearance: alert, in no apparent distress Head exam: Present: atraumatic, normocephalic, normal inspection Eye exam: Present: normal appearance, EOMI. Absent: scleral icterus, periorbital swelling Neck exam: Present: normal inspection Respiratory exam: Present: normal lung sounds bilaterally. Absent: respiratory distress, wheezes, rales, rhonchi, stridor Cardiovascular Exam: Present: regular rate, normal rhythm, normal heart sounds. Absent: systolic murmur, diastolic murmur, rubs, gallop, clicks Neurological exam: Present: alert, oriented X3, CN II-XII intact Psychiatric exam: Present: normal affect, normal mood Skin exam: Present: warm, dry, intact, normal color. Absent: rash Course Vital Signs 04/25/22 04/25/22 04/25/22 17:08 17:10 18:16 Temperature 97.8 F 99.1 F Pulse Rate 66 78 Respiratory 18 18 18 Rate Blood Pressure 125/62 138/78 O2 Sat by Pulse 99 98 Oximetry Medical Decision Making - Medical Decision Making Patient is a 47-year-old female presenting with chief complaint of cough. Patient tested positive for Covid at home today. Symptoms have been ongoing for the last 3 days. On examination heart and lungs are clear to auscultation. Patient tested positive for coronavirus here in the ER, chest x-ray shows no acute process. Patient was given albuterol inhaler. Patient is a candidate for Paxlovid, prescription is sent to pharmacy. Educated on supportive treatment and quarantine guidelines. Follow-up with PCP. Report back to ER with any new or worsening symptoms. Discussed return parameters and answered all questions. Patient conveyed verbal understanding and agreed to the plan. I discussed this case in detail with my attending Dr. Mueller - Lab Data Lab Results 04/25/22 Range/Units 17:29 Coronavirus (PCR) Detected A (Not Detectd) Disposition Clinical Impression: COVID Disposition: HOME SELF-CARE Condition: Good Instructions (If sedation given, give patient instructions): COVID-19 (Coronavirus Disease 2019) (ED) Additional Instructions: Take medication as prescribed. Use inhaler every 4-6 hours, 2 puffs, as needed for cough. Take Motrin and Tylenol as needed for fever and pain control. Quarantine for 5 days starting from the first day of symptoms, this may be followed by 5 days of strict mask usage while in public. In order to enter quarantine period, you must be fever free for at least 24 hours. Report back to ER with any new or worsening symptoms. Follow-up with PCP. Prescriptions: Nirmatrelvir/Ritonavir [Paxlovid 300-100 mg Pack (Eua)] 1 unit PO BID #1 pack Is patient prescribed a controlled substance at d/c from ED?: No Referrals: Bk Cornell MD [Primary Care Provider] - 1-2 days Time of Disposition: 18:05
--- NOTE | 2022-04-25 17:40 | XR ---
EXAMINATION TYPE: XR chest 2V DATE OF EXAM: 04/25/2022 COMPARISON: NONE HISTORY: Pain. Cough TECHNIQUE: 2 views FINDINGS: Heart and mediastinum are normal. Lungs are clear. Diaphragm is normal. Bony thorax is inta ct IMPRESSION: Normal chest
[2022-04-25 18:20] VITALS: BP 138/78; PULSE 78; TEMP 99.1
== END 2022-04-25 18:16 | disposition home or self-care (01) ==
LOC: EC 15:24
DX: U07.1 COVID-19 (principal); E07.9 Disorder of thyroid, unspecified; F41.9 Anxiety disorder, unspecified; F32.A Depression, unspecified; Z91.048 Other nonmedicinal substance allergy status; Z88.8 Allergy status to other drugs, medicaments and biological substances; Z91.011 Allergy to milk products; Z88.5 Allergy status to narcotic agent; Z79.899 Other long term (current) drug therapy
CPT/HCPCS: 71046; 87635; 94640; 99284

== ENCOUNTER → 2022-05-28 | Outpatient (CLI) | payer BC ==
[2022-05-28 16:55] LABS: Carbon Dioxide 24.8 mmol/L (20.0-27.5); Potassium 4.4 mmol/L (3.5-5.5); T4, Free (Free Thyroxine) 1.21 ng/dL (0.800-1.800)
== END | disposition home or self-care (01) ==
LOC: LABWHC1 08:08
PROVIDERS: ATTEND Internal Medicine Endocrinology, Diabetes & Metabolism
DX: E27.49 Other adrenocortical insufficiency (principal); E23.2 Diabetes insipidus
CPT/HCPCS: 36415; 80051; 82024; 82533; 82626; 83930; 83935; 84439; 84443

== ENCOUNTER → 2022-09-01 | Outpatient (CLI) | payer BC ==
--- NOTE | 2022-09-04 19:15 | MM ---
Reason for Exam: Screening (asymptomatic). Last mammogram was performed 5 year(s) and 9 month(s) ago. Patient History: Menarche at age 17. First Full-Term at age 27. Hysterectomy at age 39. 10/31/2014, Benign Core Biopsy on the left side. 10/31/2014, Benign Cyst Aspiration on the right side. Paternal aunt had breast cancer, age 33. Maternal aunt had breast cancer, age 40. Mother had breast cancer, age 68. Last menstrual period: Risk Values: Daniela 5 year model risk: 2.3%. NCI Lifetime model risk: 19.7%. Prior Study Comparison: 10/30/2014 Bilateral Diagnostic Mammogram, [facility]. 10/31/2014 Left Diagnostic Mammogram, [facility]. 11/16/2016 Bilateral Screening Mammogram, [facility]. Tissue Density: The breast tissue is heterogeneously dense. This may lower the sensitivity of mammography. Findings: Analyzed By CAD. Asymmetric density superior left MLO view does not persist on 3 images. Microclip in this region from prior biopsy. Chronic nodularity lateral left breast. Nodular asymmetric density medial right cc view anterior to middle depth is more defined. Similarly, asymmetric density lateral right cc view middle to posterior depth is more defined. Further evaluation recommended. Overall Assessment: Incomplete: need additional imaging evaluation, BI-RAD 0 Management: Special View Mammogram of the right breast. Diagnostic Breast Ultrasound of the right breast. Additional views including spot 3-D CC (2 sites) 3-D CC rolled medial, and 3-D lateral views. Given patient's high lifetime risk for the development of breast cancer, recommend additional whole right breast ultrasound. [facility] will attempt to contact patient to return for supplemental views and ultrasound if indicated. Electronically signed and approved by: Bernice Arellano M.D. Radiologist
== END | disposition home or self-care (01) ==
LOC: RADMAMWWP 16:25
PROVIDERS: ATTEND Pediatrics
DX: Z12.31 Encounter for screening mammogram for malignant neoplasm of breast (principal); Z80.3 Family history of malignant neoplasm of breast
CPT/HCPCS: 77063; 77067

== ENCOUNTER → 2022-09-06 | Outpatient (CLI) | payer BC ==
--- NOTE | 2022-09-06 10:54 | MM ---
Reason for Exam: Additional evaluation requested from abnormal screening. Last screening mammogram was performed less than 1 month ago. Patient History: Menarche at age 17. First Full-Term at age 27. Hysterectomy at age 39. 10/31/2014, Benign Core Biopsy on the left side. 10/31/2014, Benign Cyst Aspiration on the right side. Paternal aunt had breast cancer, age 33. Maternal aunt had breast cancer, age 40. Mother had breast cancer, age 68. Risk Values: Daniela 5 year model risk: 2.3%. NCI Lifetime model risk: 19.7%. Tissue Density: Right: The breast tissue is heterogeneously dense. This may lower the sensitivity of mammography. Findings: Analyzed By CAD. The area of lateral asymmetric density becomes less defined on spot 3-D CC venous. The appearance becomes similar to the patient's 2014 exam. Area of nodular asymmetry incompletely disperses along the medial anterior aspect of the cc view. No clear correlate on the lateral view. Further ultrasound evaluation recommended. Overall Assessment: Incomplete: need additional imaging evaluation, BI-RAD 0 Management: Diagnostic Breast Ultrasound of the right breast. Medial periareolar aspect. Electronically signed and approved by: Bernice Arellano M.D. Radiologist
--- NOTE | 2022-09-06 11:37 | USB ---
Patient History: Menarche at age 17. First Full-Term at age 27. Hysterectomy at age 39. 10/31/2014, Benign Core Biopsy on the left side. 10/31/2014, Benign Cyst Aspiration on the right side. Paternal aunt had breast cancer, age 33. Maternal aunt had breast cancer, age 40. Mother had breast cancer, age 68. Risk Values: Daniela 5 year model risk: 2.3%. NCI Lifetime model risk: 19.7%. Technique: Method: Targeted. Prior Study Comparison: 10/31/2014 Left Diagnostic Mammogram, [facility]. 11/16/2016 Bilateral Screening Mammogram, [facility]. 09/01/2022 Bilateral MG 3D screening mammo w/cad, [facility]. Findings: The periareolar of the right breast, the medial section of the breast of the right breast and the axilla of the right breast were scanned. Targeted ultrasound medial right breast 12:00 to 6:00 including the subareolar region and axilla. At the 4:00 position, close to the nipple, there is either a cyst with mild internal complexity/nodularity versus clumped up debris measuring 6 x 5 x 4 mm. Internal density measures 3 mm. Possible mammographic correlate. Short interval follow-up recommended to reassess. Overall Assessment: Probably benign, BI-RAD 3 Management: Diagnostic Mammogram of the right breast in 6 months. Diagnostic Breast Ultrasound of the right breast. Continue monthly self breast exams. Note patient's high lifetime risk for the development of breast cancer. Results were given to the patient verbally at the time of exam. Electronically signed and approved by: Bernice Arellano M.D. Radiologist
== END | disposition home or self-care (01) ==
LOC: RADMAMWWP 10:19
PROVIDERS: ATTEND Pediatrics
DX: R92.8 Other abnormal and inconclusive findings on diagnostic imaging of breast (principal); Z80.3 Family history of malignant neoplasm of breast
CPT/HCPCS: 77061; 77065

== ENCOUNTER 2023-01-25 18:22 | Emergency (ER) | payer BC ==
[2023-01-25 19:01] VITALS: BP 122/54; PULSE 83; RESP 16; TEMP 98
--- NOTE | 2023-01-25 20:05 | XR ---
EXAMINATION TYPE: XR foot complete LT DATE OF EXAM: 01/25/2023 7:56 PM INDICATION: Patient age:Female; 47 years old; Reason for study: PAIN CRUSH INJURY; COMPARISON: None TECHNIQUE: The left foot was examined in the AP, oblique, and lateral projections. FINDINGS: No evidence of any acute osseous pathology. No evidence of soft tissue swelling. Joints are preserve d. IMPRESSION: No evidence of acute fracture.
--- NOTE | 2023-01-25 20:30 | ED ---
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 She dropped a 20 pound weight onto the foot earlier today. She admits to pain with weightbearing as well as some swelling. - Related Data Home Medications Medication Instructions Recorded Confirmed LORazepam [Lorazepam] 0.5 mg PO HS PRN 11/03/14 08/15/16 Calcium Lactate 84 mg PO HS 08/15/16 08/15/16 Cider Vinegar [Apple Cider Vinegar] 300 mg PO HS 08/15/16 08/15/16 Desmopressin Intranasal [Ddavp 1 spray NASAL 08/15/16 08/15/16 Nasal [place]] Desmopressin Intranasal [Ddavp 2 spray NASAL [facility] 08/15/16 08/15/16 Nasal [place]] Hydrocortisone [Cortef] 5 mg PO DAILY@1500 08/15/16 08/15/16 Hydrocortisone [Cortef] 10 mg PO QAM 08/15/16 08/15/16 Levothyroxine Sodium [Tirosint] 25 mcg PO DAILY 08/15/16 08/15/16 Milk Of Magnesia Tab 1.5 tab PO HS 08/15/16 08/15/16 Montelukast [Singulair] 10 mg PO HS 08/15/16 08/15/16 Venlafaxine HCl ER [Effexor Xr] 225 mg PO DAILY 08/15/16 08/15/16 raNITIdine HCL [Ranitidine HCl] 300 mg PO HS 08/15/16 08/15/16 Previous Rx's Medication Instructions Recorded Dicyclomine HCl [Bentyl] 20 mg PO QID PRN #15 tab 08/15/16 Ondansetron Odt [Zofran Odt] 4 mg PO Q8HR PRN #10 tab 08/15/16 Nirmatrelvir/Ritonavir [Paxlovid 1 unit PO BID #1 pack 04/25/22 300-100 mg Pack (Eua)] Allergies Allergy/AdvReac Type Severity Reaction Status Date / Time adhesive AdvReac TEARS AND Verified 04/25/22 17:11 IRRITATES SKIN gluten AdvReac JOINT PAIN Verified 04/25/22 17:11 AND SEVERE CONSTIPATION lactose AdvReac Nausea & Verified 04/25/22 17:11 Vomiting codeine AdvReac Nausea & Uncoded 04/25/22 17:11 Vomiting Review of Systems ROS Statement: Those systems with pertinent positive or pertinent negative responses have been documented in the HPI. ROS Other: All systems not noted in ROS Statement are negative. Past Medical History Past Medical History: Thyroid Disorder Additional Past Medical History / Comment(s): hx pituitary tumor,anemia,hyp oglycemia, steroid dependant diabetes insipidous , addisons disease History of Any Multi-Drug Resistant Organisms: None Reported Past Surgical History: Breast Surgery, Hysterectomy Additional Past Surgical History / Comment(s): exploratory laparoscopy,pituitary removed 01-21-12-transphenoid approach, bryan breast bx ;colonoscopy Past Anesthesia/Blood Transfusion Reactions: Motion Sickness, Postoperative Nausea & Vomiting (PONV) Past Psychological History: Anxiety, Depression Smoking Status: Never smoker Past Alcohol Use History: None Reported Past Drug Use History: None Reported - Past Family History Mother Family Medical History: Hyperlipidemia, Hypertension Father Family Medical History: Cancer, Hyperlipidemia, Hypertension Additional Family Medical History / Comment(s): arthritis General Exam Limitations: no limitations General appearance: alert, in no apparent distress Head exam: Present: atraumatic, normocephalic, normal inspection Eye exam: Present: normal appearance, EOMI. Absent: scleral icterus, periorbital swelling Neck exam: Present: normal inspection, full ROM Left Foot/Toe exam: Present: normal inspection, full ROM, tenderness. Absent: deformity Neurological exam: Present: alert, oriented X3, CN II-XII intact Psychiatric exam: Present: normal affect, normal mood Skin exam: Present: warm, dry, intact, normal color. Absent: rash Course Vital Signs 01/25/23 18:57 Temperature 98 F Pulse Rate 83 Respiratory 16 Rate Blood Pressure 122/54 O2 Sat by Pulse 97 Oximetry Medical Decision Making - Medical Decision Making Was pt. sent in by a medical professional or institution (, PA, SECTION PLOTTER OPERATOR, urgent care, hospital, or [facility]...) When possible be specific @ -No Did you speak to anyone other than the patient for history (EMS, parent, family, police, friend...)? What history was obtained from this source @ -No Did you review nursing and triage notes (agree or disagree)? Why? @ -I reviewed and agree with nursing and triage notes Were old charts reviewed (outside hosp., previous admission, EMS record, old EKG, old radiological studies, urgent care reports/EKG's, [facility] records)? Report findings @ -No old charts were reviewed Differential Diagnosis (chest pain, altered mental status, abdominal pain women, abdominal pain men, vaginal bleeding, weakness, fever, dyspnea, syncope, headache, dizziness, GI bleed, back pain, seizure, CVA, palpatations, mental health, musculoskeletal)? @ -Differential Musculoskeletal Muscular strain, contusion, ligament sprain, fracture, arthritis, septic arthritis, bursitis, cellulitis, muscle spasm, nerve compression, DVT, arterial occlusion, herpes zoster, electrolyte abnormality, tumor.... This is not meant to be in all inclusive list EKG interpreted by me (3pts min.). @ -As above X-rays interpreted by me (1pt min.). @ -X-ray shows no fracture or dislocation CT interpreted by me (1pt min.). @ -None done U/S interpreted by me (1pt. min.). @ -None done What testing was considered but not performed or refused? (CT, X-rays, U/S, labs)? Why? @ -None What meds were considered but not given or refused? Why? @ -None Did you discuss the management of the patient with other professionals (professionals i.e. , PA, SECTION PLOTTER OPERATOR, lab, RT, psych nurse, older adult social work specialist, riddler operator, teacher, principal gifts officer, medical case manager)? Give summary @ -No Was smoking cessation discussed for >3mins.? @ -No Was critical care preformed (if so, how long)? @ -No Were there social determinants of health that impacted care today? How? (Homelessness, low income, unemployed, alcoholism, drug addiction, transportation, low edu. Level, literacy, decrease access to med. care, correction, rehab)? @ -No Was there de-escalation of care discussed even if they declined (Discuss DNR or withdrawal of care, Hospice)? DNR status @ -No What co-morbidities impacted this encounter? (DM, HTN, Smoking, COPD, CAD, Cancer, CVA, ARF, Chemo, Hep., AIDS, mental health diagnosis, sleep apnea, morbid obesity)? @ -None Was patient admitted / discharged? Hospital course, mention meds given and route, prescriptions, significant lab abnormalities, going to OR and other pertinent info. @ -47-year-old female presenting with chief complaint of left foot pain after dropping a 20 pound weight on earlier today. X-rays negative for fracture or dislocation. Patient is educated on supportive management at home. She is provided with crutches to help remain nonweightbearing until symptoms improve. Follow-up with PCP. Report back to ER with any new or worsening symptoms. Discussed return parameters and answered all questions. Patient conveyed verbal understanding and agreed to the plan. I discussed this case in detail with my attending Dr. Mueller Undiagnosed new problem with uncertain prognosis? @ -No Drug Therapy requiring intensive monitoring for toxicity (Heparin, Nitro, Insulin, Cardizem)? @ -No Were any procedures done? @ -No Diagnosis/symptom? @ -Foot sprain Acute, or Chronic, or Acute on Chronic? @ -Acute Uncomplicated (without systemic symptoms) or Complicated (systemic symptoms)? @ -Uncomplicated Side effects of treatment? @ -No Exacerbation, Progression, or Severe Exacerbation? @ -No Poses a threat to life or bodily function? How? (Chest pain, USA, OR, pneumonia, PE, COPD, DKA, ARF, appy, cholecystitis, CVA, Diverticulitis, Homicidal, Suicidal, threat to staff... and all critical care pts) @ -No Disposition Clinical Impression: Foot sprain Disposition: HOME SELF-CARE Condition: Good Instructions (If sedation given, give patient instructions): Foot Sprain (ED) Additional Instructions: Follow-up with PCP. Report back to ER with any new or worsening symptoms. Take Motrin and Tylenol as needed for pain control. Rest, ice, compress, and elevate the foot. Use crutches as needed to remain nonweightbearing until symptoms improve Is patient prescribed a controlled substance at d/c from ED?: No Referrals: Bk Cornell MD [Primary Care Provider] - 1-2 days Time of Disposition: 20:30
== END 2023-01-25 20:46 | disposition home or self-care (01) ==
LOC: EC 18:22
DX: S93.602A Unspecified sprain of left foot, initial encounter (principal); E07.9 Disorder of thyroid, unspecified; F32.A Depression, unspecified; F41.9 Anxiety disorder, unspecified; Z79.890 Hormone replacement therapy; Z79.899 Other long term (current) drug therapy; Z88.5 Allergy status to narcotic agent; Z88.8 Allergy status to other drugs, medicaments and biological substances; Z91.011 Allergy to milk products; Z91.09 Other allergy status, other than to drugs and biological substances; W20.8XXA Other cause of strike by thrown, projected or falling object, initial encounter
CPT/HCPCS: 99283

== ENCOUNTER → 2023-03-25 | Outpatient (CLI) | payer BC ==
[2023-03-25 13:51] LABS: Anion Gap 14.2 mmol/L (4.00-12.00); Carbon Dioxide 19.8 mmol/L (21.6-31.8); Potassium 4.6 mmol/L (3.5-5.5); T4, Free (Free Thyroxine) 1.44 ng/dL (0.80-1.80)
== END | disposition home or self-care (01) ==
LOC: LABWHC1 07:59
PROVIDERS: ATTEND Internal Medicine Endocrinology, Diabetes & Metabolism
DX: E27.49 Other adrenocortical insufficiency (principal); E03.8 Other specified hypothyroidism; E23.2 Diabetes insipidus; E55.0 Rickets, active
CPT/HCPCS: 36415; 80051; 82024; 82306; 82533; 82627; 83930; 84439; 84480

== ENCOUNTER → 2025-03-12 | Outpatient (CLI) | payer BC ==
--- NOTE | 2025-03-12 17:30 | MM ---
Reason for Exam: Screening (asymptomatic). Last mammogram was performed 2 year(s) and 6 month(s) ago. Patient History: Menarche at age 17. First Full-Term at age 27. Hysterectomy at age 39. Patient has history of breast feeding. Patient used Hormonal Contraceptives for 15 years. 10/31/2014, Benign Core Biopsy on the left side. 10/31/2014, Benign Cyst Aspiration on the right side. Paternal aunt had breast cancer, age 33. Maternal aunt had breast cancer, age 40. Maternal grandmother had breast cancer at or over age 50. Mother had breast cancer, age 68. Risk Values: Daniela 5 year model risk: 2.2%. NCI Lifetime model risk: 18.7%. Prior Study Comparison: 11/16/2016 Bilateral Screening Mammogram, [facility]. 09/01/2022 Bilateral MG 3D screening mammo w/cad, [facility]. 09/06/2022 Right MG 3D work up w/cad RT, [facility]. Tissue Density: The breasts are heterogeneously dense, which may obscure small masses. Findings: Analyzed By CAD. There is fluctuating bilateral nodularity but with new nodules now present throughout the posterior aspect of the right breast for which further ultrasound evaluation is recommended. Microclip left breast from prior biopsy. Otherwise, no significant change. Overall Assessment: Incomplete: need additional imaging evaluation, BI-RAD 0 Management: Diagnostic Breast Ultrasound of the right breast. The suspected multiple underlying fluctuating cysts present throughout the breast. [facility] will attempt to contact patient to return for ultrasound. [facility], , 03/12/2025 5:27 PM. Electronically signed and approved by: Bernice Arellano M.D. Radiologist
== END | disposition home or self-care (01) ==
LOC: RADMAMWWP 15:40
PROVIDERS: ATTEND Pediatrics
DX: Z12.31 Encounter for screening mammogram for malignant neoplasm of breast (principal); R92.333 Mammographic heterogeneous density, bilateral breasts; Z92.0 Personal history of contraception; Z80.3 Family history of malignant neoplasm of breast
CPT/HCPCS: 77063; 77067

== ENCOUNTER → 2025-03-13 | Outpatient (CLI) | payer BC ==
--- NOTE | 2025-03-13 14:43 | USB ---
Reason for Exam: Additional evaluation requested from abnormal screening. Patient History: Menarche at age 17. First Full-Term at age 27. Hysterectomy at age 39. Patient has history of breast feeding. Patient used Hormonal Contraceptives for 15 years. 10/31/2014, Benign Core Biopsy on the left side. 10/31/2014, Benign Cyst Aspiration on the right side. Paternal aunt had breast cancer, age 33. Maternal aunt had breast cancer, age 40. Maternal grandmother had breast cancer at or over age 50. Mother had breast cancer, age 68. Risk Values: Daniela 5 year model risk: 2.2%. NCI Lifetime model risk: 18.7%. Technique: Method: Targeted. Prior Study Comparison: 09/01/2022 Bilateral MG 3D screening mammo w/cad, [facility]. 09/06/2022 Right MG 3D work up w/cad RT, [facility]. 03/12/2025 Bilateral MG 3D screening mammo w/cad, [facility]. Findings: The lateral section of the breast of the right breast, the axilla of the right breast and the retroareolar of the right breast were scanned. Targeted ultrasound right breast 9-10 o'clock as well as the inferior aspect, axilla, and subareolar region. At the 6:00 position, 6 cm from the nipple, there is a benign 9 x 7 x 3 mm cyst cluster. At the 9:00 position, 6 cm from the nipple, there is a benign 7 x 6 x 4 mm cyst. At the 10:00 position, 7 cm from the nipple, there is a benign-appearing 1.4 x 1.2 x 0.8 cm cyst cluster. No other solid or cystic lesion or axillary adenopathy. Overall Assessment: Probably benign, BI-RAD 3 Management: Diagnostic Mammogram of the right breast in 6 months. For the fluctuating nodularity that appears to correspond to underlying cysts on ultrasound. A clinical breast exam by your physician is recommended on an annual basis and results should be correlated with mammographic findings. This exam should not preclude additional follow-up of suspicious palpable abnormalities. Results were given to the patient verbally at the time of exam. [facility], Workstation: [id number], 03/13/2025 2:40 PM. Electronically signed and approved by: Bernice Arellano M.D. Radiologist
== END | disposition home or self-care (01) ==
LOC: RADUSWWP 13:48
PROVIDERS: ATTEND Pediatrics
DX: R92.8 Other abnormal and inconclusive findings on diagnostic imaging of breast (principal); Z92.0 Personal history of contraception; Z80.3 Family history of malignant neoplasm of breast